=== PATIENT | female | born 1970 | race Hispanic/Latino ===

== ENCOUNTER 2016-10-25 07:36 | Emergency (ER) | payer MEDICAID, OTHER ==
[2016-10-25 07:41] VITALS: BP 136/85; PULSE 98; RESP 20; TEMP 97.9; O2SAT 100; BMI 24.0
--- NOTE | 2016-10-25 07:54 | ED PDOC ---
HPI: Asthma Time Seen by Provider: 10/25/16 07:42 Chief Complaint (Nursing): Flu-like Symptoms History Per: Patient History/Exam Limitations: no limitations Additional Complaint(s): 46-year-old female, PMHx includes Seasonal Asthma, presents to the emergency department with complaints of wheezing that started this morning. Patient states her symptoms are consistent w/ prior asthma exacerbation symptoms. She notes mild associated chest tightness. Denies vomiting, fevers, chills, shortness of breath, chest pain, back pain, nausea/vomiting, diarrhea, or any other associated symptoms. No other complaints at this time. Past Medical History Vital Signs: Last Vital Signs Temp 97.9 F 10/25/16 07:38 Pulse 98 H 10/25/16 07:38 Resp 20 10/25/16 07:38 BP 136/85 10/25/16 07:38 Pulse Ox 100 10/25/16 07:38 - Medical History PMH: Asthma, Migraine Denies: HIV - Family History Family History: States: Unknown Family Hx - Home Medications Home Medications: Ambulatory Orders Medication Instructions Recorded Acetaminophen [Tylenol] 650 mg PO Q6 PRN #0 tab 10/17/14 Multivit/Folic Acid/I 1 tab PO DAILY #0 tab 10/17/14 [ Plus] Oxycodone HCl/Acetaminophen 1 tab PO Q6 PRN #8 tab 11/05/14 [Percocet 325 mg-5 mg] Albuterol HFA [Ventolin HFA 90 2 puff IH [id number] PRN #1 puff 12/23/14 mcg/actuation (8 g)] Chlorpheniramine Polistirex/ 5 ml PO Q12 #80 ml 12/23/14 [Tussionex Pennkinetic 8 mg/5 ml-10 mg/5 ml 5 ] Fluticasone Propionate [Flonase] 1 actuation NS BID #1 bottle 12/23/14 Guaifenesin/Pseudoephedrne HCl 1 tab PO DAILY PRN #30 ter 12/23/14 [Mucinex D 600 mg-60 mg] Prednisone 20 mg PO DAILY #5 tab 12/23/14 Ibuprofen 600 mg PO Q6 PRN #15 tablet 01/22/16 Amoxicillin 875 mg PO BID #20 tab 03/01/16 Albuterol HFA [Ventolin HFA 90 2 puff IH Q4 #1 puff 10/25/16 mcg/actuation (8 g)] predniSONE [predniSONE Tab] 40 mg PO DAILY #10 tab 10/25/16 - Allergies Allergies/Adverse Reactions: Allergies Allergy/AdvReac Type Severity Reaction Status Date / Time No Known Allergies Allergy Verified 08/03/16 07:49 Review of Systems ROS Statement: Except As Marked, All Systems Reviewed And Found Negative Constitutional: Negative for: Fever, Chills ENT: Positive for: Nose Congestion Cardiovascular: Negative for: Chest Pain, Palpitations, Edema, Light Headedness Respiratory: Positive for: Cough, Other (MILD CHEST TIGHTNESS). Negative for: Shortness of Breath, Sputum Gastrointestinal: Negative for: Nausea, Vomiting Musculoskeletal: Negative for: Neck Pain, Back Pain Skin: Negative for: Rash Neurological: Negative for: Weakness, Numbness, Headache Physical Exam - Reviewed Nursing Documentation Reviewed: Yes Vital Signs Reviewed: Yes - Physical Exam Appears: Positive for: Non-toxic, No Acute Distress Head Exam: Positive for: ATRAUMATIC, NORMOCEPHALIC Skin: Positive for: Normal Color, Warm, Dry. Negative for: Rash Eye Exam: Positive for: Normal appearance Neck: Positive for: Painless ROM, Supple Cardiovascular/Chest: Positive for: Regular Rate, Rhythm Respiratory: Positive for: Wheezing (DIFFUSE EXPIRATORY WHEEZING). Negative for : Accessory Muscle Use, Rales, Rhonchi, Respiratory Distress Extremity: Positive for: Normal ROM Neurologic/Psych: Positive for: Alert, Oriented (X3), Other (NO FOCAL NEURO DEFICITS) - ECG O2 Sat by Pulse Oximetry: 100 Medical Decision Making Medical Decision Making: Impression: 46y/o F w/ expiratory wheezing that started this morning. patient attributes symptoms to seasonal asthma. Diff Dx (includes but not limited to) Seasonal Asthma exacerbation R/O Pneumonia vs URI Prior Visits Notes and records from previous records were reviewed. Patient seen in ER on for lower extremity pain/injury. Plan: * Chest X-Ray * Duoneb * Reassess and Disposition 0850 On re-evaluation. Patients wheezing has improved significantly, Pt is c/o mild chest tightness. Will order another Duoneb and reassess. 09:40 Patient felt much better. No chest tightness. No wheezing. Lungs clear. No w/r/ r. She does not want to take Prednisone. I gave her a prescription for Albuterol and Prednisone and told her to make sure to take medications as directed. She will f/u with her PMD. CXR negative for PNA and patient does not clinically need antibiotics. Scribe Attestation: Documented by Lina Spencer acting as a scribe for Jose Lainez DO. Provider Attestation: All medical record entries made by the Scribe were at my direction and personally dictated by me. I have reviewed the chart and agree that the record accurately reflects my personal performance of the history, physical exam, medical decision making, and the department course for this patient. I have also personally directed, reviewed, and agree with the discharge instructions and disposition. Disposition - Clinical Impression Clinical Impression: URI (upper respiratory infection), Asthma - Disposition Referrals: Dharmesh Jurado MD [Primary Care Provider] - Disposition Time: 10:00 Condition: IMPROVED Additional Instructions: Ms Vargas, thank you for letting us take care of you today. Your provider was Dr. Lainez. You were treated for Asthma, Upper Resp Infection. The emergency medical care you received today was directed at your acute symptoms. If you were prescribed any medication, please fill it and take as directed. It may take several days for your symptoms to resolve. Return to the Emergency Department if your symptoms worsen, do not improve, or if you have any other problems. Please contact your doctor or call one of the physicians/clinics you have been referred to that are listed on the Patient Visit Information form that is included in your discharge packet. Bring any paperwork you were given at discharge with you along with any medications you are taking to your follow up visit. Our treatment cannot replace ongoing medical care by a primary care provider (PCP) outside of the emergency department. Thank you for allowing the [facility] team to be part of your care today. If you had an X-Ray or CT scan: A Radiologist will review the ED reading if any change in treatment is needed we will contact you. If you had a blood, urine, or wound culture: It will take several days for the results, if any change in treatment is needed we will contact you. If you had an STI test: It will take 48 hours for the results. Please call after 1 week if you have not heard back. Prescriptions: Albuterol HFA [Ventolin HFA 90 mcg/actuation (8 g)] 2 puff IH Q4 #1 puff predniSONE [predniSONE Tab] 40 mg PO DAILY #10 tab Forms: [facility] ED School/Work Excuse
[2016-10-25] MEDS ORDERED: Albuterol-Ipratrop 3 mg / 0.5 (3 ml) UD IH STA ×2 (08:07→08:51)
[2016-10-25] MEDS ORDERED: Albuterol-Ipratrop 3 mg / 0.5 (3 ml) UD ONE (08:49)
--- NOTE | 2016-10-25 09:42 | RAD ---
HISTORY: cough r/o pna COMPARISON: 12/23/2014. TECHNIQUE: Chest PA and lateral FINDINGS: LUNGS: No active pulmonary disease. PLEURA: No significant pleural effusion identified. No pneumothorax apparent. CARDIOVASCULAR: Normal. OSSEOUS STRUCTURES: No significant abnormalities. VISUALIZED UPPER ABDOMEN: Normal. OTHER FINDINGS: None. IMPRESSION: No active disease.
== END 2016-10-25 10:10 | disposition home or self-care (01) ==
LOC: H.ER 07:36
DX: J06.9 Acute upper respiratory infection, unspecified (principal); J45.901 Unspecified asthma with (acute) exacerbation

== ENCOUNTER 2016-10-28 07:39 | Emergency (ER) | payer SELFPAY ==
[2016-10-28 07:39] VITALS: BMI 24.0
[2016-10-28 07:55] VITALS: O2SAT 98
--- NOTE | 2016-10-28 08:22 | ED PDOC ---
HPI: SOB/CHF/COPD Time Seen by Provider: 10/28/16 07:49 Chief Complaint (Nursing): Cough, Cold, Congestion Chief Complaint (Provider): Cough, Cold, Congestion History Per: Patient History/Exam Limitations: no limitations Onset/Duration Of Symptoms: Days Current Symptoms Are (Timing): Still Present Initiating Event: Upper Respiratory Illness Quality: Tightness Exacerbating Factor(s): Coughing Current Respiratory Medications: Albuterol, Prednisone Severity: Mild Associated Symptoms: Fever Additional Complaint(s): Patient is a 46 year old female who presents to ED for SOB, feeling feverish, and cough for 1 week. States she was evaluated in ED over the weekend with a negative CXR and discharged on Prednisone and Albuterol. Patient states she was instructed to return to ED if symptoms worsen. Patient denies sore throat, headache or sputum. Past Medical History Reviewed: Historical Data, Nursing Documentation, Vital Signs Vital Signs: Last Vital Signs Temp 97.4 F L 10/28/16 07:45 Pulse 86 10/28/16 07:45 Resp 18 10/28/16 07:45 BP 135/88 10/28/16 07:45 Pulse Ox 98 10/28/16 08:25 - Medical History PMH: Asthma, Bronchitis, Migraine Denies: HIV - Surgical History Surgical History: No Surg Hx - Family History Family History: States: Unknown Family Hx - Living Arrangements Living Arrangements: With Family - Home Medications Home Medications: Ambulatory Orders Medication Instructions Recorded Acetaminophen [Tylenol] 650 mg PO Q6 PRN #0 tab 10/17/14 Multivit/Folic Acid/I 1 tab PO DAILY #0 tab 10/17/14 [ Plus] Oxycodone HCl/Acetaminophen 1 tab PO Q6 PRN #8 tab 11/05/14 [Percocet 325 mg-5 mg] Albuterol HFA [Ventolin HFA 90 2 puff IH [id number] PRN #1 puff 12/23/14 mcg/actuation (8 g)] Chlorpheniramine Polistirex/ 5 ml PO Q12 #80 ml 12/23/14 [Tussionex Pennkinetic 8 mg/5 ml-10 mg/5 ml 5 ] Fluticasone Propionate [Flonase] 1 actuation NS BID #1 bottle 12/23/14 Guaifenesin/Pseudoephedrne HCl 1 tab PO DAILY PRN #30 ter 12/23/14 [Mucinex D 600 mg-60 mg] Prednisone 20 mg PO DAILY #5 tab 12/23/14 Ibuprofen 600 mg PO Q6 PRN #15 tablet 01/22/16 Amoxicillin 875 mg PO BID #20 tab 03/01/16 Albuterol HFA [Ventolin HFA 90 2 puff IH Q4 #1 puff 10/25/16 mcg/actuation (8 g)] predniSONE [predniSONE Tab] 40 mg PO DAILY #10 tab 10/25/16 Fluticasone/Salmeterol 250/50 1 dsk IH BID #1 inh 10/28/16 [Advair Diskus] Promethazine/Codeine 5 ml PO Q6 PRN #100 ml 10/28/16 [Phenergan/Codeine Oral Syrup] - Allergies Allergies/Adverse Reactions: Allergies Allergy/AdvReac Type Severity Reaction Status Date / Time No Known Allergies Allergy Verified 08/03/16 07:49 Review of Systems ROS Statement: Except As Marked, All Systems Reviewed And Found Negative Constitutional: Positive for: Chills. Negative for: Fever ENT: Negative for: Ear Pain, Nose Congestion, Throat Pain Cardiovascular: Negative for: Chest Pain, Palpitations Respiratory: Positive for: Cough, Shortness of Breath, Wheezing. Negative for: Sputum Gastrointestinal: Positive for: Nausea. Negative for: Vomiting, Abdominal Pain , Diarrhea Skin: Negative for: Rash Neurological: Negative for: Weakness, Numbness Physical Exam - Reviewed Nursing Documentation Reviewed: Yes Vital Signs Reviewed: Yes - Physical Exam Appears: Positive for: Non-toxic, No Acute Distress Skin: Positive for: Normal Color, Warm. Negative for: Rash Eye Exam: Positive for: Normal appearance ENT: Negative for: Nasal Congestion, Pharyngeal Erythema, Tonsillar Exudate Neck: Positive for: Normal, Painless ROM Cardiovascular/Chest: Positive for: Regular Rate, Rhythm. Negative for: Murmur Respiratory: Positive for: Normal Breath Sounds. Negative for: Respiratory Distress Gastrointestinal/Abdominal: Positive for: Normal Exam. Negative for: Tenderness Extremity: Positive for: Normal ROM. Negative for: Pedal Edema Neurologic/Psych: Positive for: Alert, Oriented - Laboratory Results Result Diagrams: 10/28/16 08:30 10/28/16 08:30 - ECG O2 Sat by Pulse Oximetry: 98 - Progress Re-evaluation Time: 10:33 Condition: Re-examined, Improved Medical Decision Making Medical Decision Making: Time: 08 Initial impression: Asthma exacerbation vs URI, possible steroid side effect. Initial plan: cbc trop -- Duoneb x2 -- Flu swab Scribe Attestation: Documented by Kely Leal acting as a scribe for Marvin Jennings MD MD Scribe Attestation: All medical record entries made by the Scribe were at my direction and personally dictated by me. I have reviewed the chart and agree that the record accurately reflects my personal performance of the history, physical exam, medical decision making, and the department course for this patient. I have also personally directed, reviewed, and agree with the discharge instructions and disposition. Disposition - Clinical Impression Clinical Impression: Asthma exacerbation - Patient ED Disposition Is Patient to be Admitted: No Doctor Will See Patient In The: Office Counseled Patient/Family Regarding: Studies Performed, Diagnosis, Need For Followup - Disposition Referrals: [facility] [Outside] Disposition: Routine/Home Disposition Time: 10:33 Condition: GOOD Additional Instructions: Return for worsening. Follow up with your PCP in 2-3 days. Prescriptions: Fluticasone/Salmeterol 250/50 [Advair Diskus] 1 dsk IH BID #1 inh Instructions: Asthma (ED)
[2016-10-28] MEDS ORDERED: Albuterol 0.083% Inhal Sol (2.5 mg/3 mL) UD INH STA (08:33)
[2016-10-28] MEDS ORDERED: Promethazine/Cod 6.25mg-10mg/5ml Syr UD PO STA (08:34)
[2016-10-28] MEDS ORDERED: Promethazine/Cod 6.25mg-10mg/5ml Syr UD ONE (08:58)
[2016-10-28 09:09] LABS: BASO % 0.5 % (0.0-2.0); EOS % 0.1 % (0.0-4.0); LYMPH % 11.9 % (20.0-40.0); MEAN CELL VOLUME 92.1 fl (81.0-99.0); MEAN CORPUSCULAR HEMOGLOBIN 30.3 pg (27.0-31.0); MEAN CORPUSCULAR HGB CONC 32.9 g/dL (33.0-37.0); MEAN PLATELET VOLUME 10.4 fl (7.2-11.7); MONO # 0.3 K/uL (0.0-0.8); MONO % 3.8 % (0.0-10.0); NEUT # 7.1 K/uL (1.8-7.0); NEUT % 83.7 % (50.0-75.0); NRBC % 0.1 % (0.0-0.0); RED CELL DISTRIBUTION WIDTH 12.2 % (11.5-14.5); WHITE BLOOD COUNT 8.5 K/uL (4.8-10.8)
[2016-10-28 09:26] LABS: BLOOD UREA NITROGEN 9 mg/dl (7-17); CALCIUM 10.2 mg/dL (8.4-10.2); CARBON DIOXIDE 23 mmol/L (22-30); CHLORIDE 105 mmol/L (98-107); GFR AFRICAN-AMERICAN > 60; GLUCOSE,RANDOM 106 mg/dL (65-105); POTASSIUM 4.1 MMOL/L (3.6-5.0); SODIUM 139 mmol/l (132-148)
[2016-10-28 10:50] VITALS: BP 128/76; PULSE 78; RESP 19; TEMP 97.6
--- NOTE | 2016-10-29 10:03 | CARD ---
APPROVED REPORT EKG Measurement Heart [id number] <Conclusion> Normal sinus rhythm Normal ECG
== END 2016-10-28 10:50 | disposition home or self-care (01) ==
LOC: H.ER 07:39
DX: J45.901 Unspecified asthma with (acute) exacerbation (principal); F17.210 Nicotine dependence, cigarettes, uncomplicated

== ENCOUNTER 2016-11-27 20:59 | Emergency (ER) | payer SELFPAY ==
[2016-11-27 20:59] VITALS: BMI 24.0
[2016-11-27 21:08] VITALS: BP 141/81; PULSE 84; RESP 16; TEMP 97.9; O2SAT 100
--- NOTE | 2016-11-27 21:40 | ED PDOC ---
HPI: Skin/Bite Injury Time Seen by Provider: 11/27/16 21:08 Chief Complaint (Nursing): Abnormal Skin Integrity Chief Complaint (Provider): abscess History Per: Patient Additional Complaint(s): Pt ambulated to ED for evaluation of 'boil' in right groin x 2 days Past Medical History Vital Signs: Last Vital Signs Temp 97.9 F 11/27/16 21:04 Pulse 84 11/27/16 21:04 Resp 16 11/27/16 21:04 BP 141/81 11/27/16 21:04 Pulse Ox 100 11/27/16 21:04 - Medical History PMH: Asthma, Bronchitis, Migraine Denies: HIV - Family History Family History: States: Unknown Family Hx - Home Medications Home Medications: Ambulatory Orders Medication Instructions Recorded Acetaminophen [Tylenol] 650 mg PO Q6 PRN #0 tab 10/17/14 Multivit/Folic Acid/I 1 tab PO DAILY #0 tab 10/17/14 [ Plus] Oxycodone HCl/Acetaminophen 1 tab PO Q6 PRN #8 tab 11/05/14 [Percocet 325 mg-5 mg] Albuterol HFA [Ventolin HFA 90 2 puff IH [id number] PRN #1 puff 12/23/14 mcg/actuation (8 g)] Chlorpheniramine Polistirex/ 5 ml PO Q12 #80 ml 12/23/14 [Tussionex Pennkinetic 8 mg/5 ml-10 mg/5 ml 5 ] Fluticasone Propionate [Flonase] 1 actuation NS BID #1 bottle 12/23/14 Guaifenesin/Pseudoephedrne HCl 1 tab PO DAILY PRN #30 ter 12/23/14 [Mucinex D 600 mg-60 mg] Prednisone 20 mg PO DAILY #5 tab 12/23/14 Ibuprofen 600 mg PO Q6 PRN #15 tablet 01/22/16 Amoxicillin 875 mg PO BID #20 tab 03/01/16 Albuterol HFA [Ventolin HFA 90 2 puff IH Q4 #1 puff 10/25/16 mcg/actuation (8 g)] predniSONE [predniSONE Tab] 40 mg PO DAILY #10 tab 10/25/16 Azithromycin [Z-Everardo] 250 mg PO DAILY #6 tab 10/28/16 Fluticasone/Salmeterol 250/50 1 dsk IH BID #1 inh 10/28/16 [Advair Diskus] Promethazine/Codeine 5 ml PO Q6 PRN #100 ml 10/28/16 [Phenergan/Codeine Oral Syrup] - Allergies Allergies/Adverse Reactions: Allergies Allergy/AdvReac Type Severity Reaction Status Date / Time No Known Allergies Allergy Verified 11/27/16 21:08 - ECG O2 Sat by Pulse Oximetry: 100
== END 2016-11-28 00:04 | disposition home or self-care (01) ==
LOC: H.ER 20:59
DX: Z48.00 Encounter for change or removal of nonsurgical wound dressing (principal)

== ENCOUNTER 2017-01-24 15:49 | Emergency (ER) | payer MEDICAID ==
[2017-01-24 15:50] VITALS: BMI 24.0
[2017-01-24 15:55] VITALS: BP 129/96; PULSE 98; RESP 18; TEMP 98.3; O2SAT 98
--- NOTE | 2017-01-24 16:42 | ED PDOC ---
HPI: Female Pain Time Seen by Provider: 01/24/17 15:56 Chief Complaint (Nursing): Female Genitourinary Chief Complaint (Provider): Dysuria and Urinary frequency History Per: Patient History/Exam Limitations: no limitations Onset/Duration Of Symptoms: Hrs Current Symptoms Are (Timing): Still Present Associated Symptoms: denies: Fever, Chest Pain Additional Complaint(s): Yesenia Vargas, a 46 year old female, presents to the ED with dysuria and urine frequency w/o back pain. The patient also states that for the past 3 days she has had a cough which she self treated with zithromax, which she had left over from a previous infection. Denies shortness of breath, chest pain, hemoptysis, fever, sick contacts, recent travel, hematuria and flank pain. Past Medical History Reviewed: Historical Data, Nursing Documentation, Vital Signs Vital Signs: Last Vital Signs Temp 98.3 F 01/24/17 15:53 Pulse 98 H 01/24/17 15:53 Resp 18 01/24/17 15:53 BP 129/96 H 01/24/17 15:53 Pulse Ox 98 01/24/17 15:53 - Medical History PMH: Asthma, Bronchitis, Migraine Denies: HIV - Family History Family History: States: Unknown Family Hx - Home Medications Home Medications: Ambulatory Orders Medication Instructions Recorded Acetaminophen [Tylenol] 650 mg PO Q6 PRN #0 tab 10/17/14 Multivit/Folic Acid/I 1 tab PO DAILY #0 tab 10/17/14 [ Plus] Oxycodone HCl/Acetaminophen 1 tab PO Q6 PRN #8 tab 11/05/14 [Percocet 325 mg-5 mg] Albuterol HFA [Ventolin HFA 90 2 puff IH [id number] PRN #1 puff 12/23/14 mcg/actuation (8 g)] Chlorpheniramine Polistirex/ 5 ml PO Q12 #80 ml 12/23/14 [Tussionex Pennkinetic 8 mg/5 ml-10 mg/5 ml 5 ] Fluticasone Propionate [Flonase] 1 actuation NS BID #1 bottle 12/23/14 Guaifenesin/Pseudoephedrne HCl 1 tab PO DAILY PRN #30 ter 12/23/14 [Mucinex D 600 mg-60 mg] Prednisone 20 mg PO DAILY #5 tab 12/23/14 Ibuprofen 600 mg PO Q6 PRN #15 tablet 01/22/16 Amoxicillin 875 mg PO BID #20 tab 03/01/16 Albuterol HFA [Ventolin HFA 90 2 puff IH Q4 #1 puff 10/25/16 mcg/actuation (8 g)] predniSONE [predniSONE Tab] 40 mg PO DAILY #10 tab 10/25/16 Azithromycin [Z-Everardo] 250 mg PO DAILY #6 tab 10/28/16 Fluticasone/Salmeterol 250/50 1 dsk IH BID #1 inh 10/28/16 [Advair Diskus] Promethazine/Codeine 5 ml PO Q6 PRN #100 ml 10/28/16 [Phenergan/Codeine Oral Syrup] Clindamycin [Cleocin] 300 mg PO BID #14 cap 11/27/16 Ibuprofen [Motrin] 600 mg PO Q6 #20 tab 11/27/16 Mupirocin 2% Cream [Bactroban 30 applic TOP BID #1 tube 11/27/16 Cream] Nitrofurantoin Macrocrystals 100 mg PO BID #14 cap 01/24/17 [Macrobid] Phenazopyridine [Pyridium] 200 mg PO BID #6 tab 01/24/17 Promethazine DM [Phenergan DM 5 - 10 ml PO Q8 PRN #120 ml 01/24/17 Syrup] - Allergies Allergies/Adverse Reactions: Allergies Allergy/AdvReac Type Severity Reaction Status Date / Time No Known Allergies Allergy Verified 01/24/17 15:52 Review of Systems Constitutional: Negative for: Fever Cardiovascular: Negative for: Chest Pain Respiratory: Positive for: Cough. Negative for: Shortness of Breath, Hemoptysis Genitourinary Female: Positive for: Dysuria, Frequency. Negative for: Hematuria Musculoskeletal: Positive for: Other (denies flank pain). Negative for: Back Pain Physical Exam - Reviewed Nursing Documentation Reviewed: Yes Vital Signs Reviewed: Yes - Physical Exam Appears: Positive for: Non-toxic, No Acute Distress Head Exam: Positive for: ATRAUMATIC, NORMOCEPHALIC Skin: Positive for: Normal Color, Warm Eye Exam: Positive for: Normal appearance, EOMI, PERRL ENT: Positive for: Normal ENT Inspection Cardiovascular/Chest: Positive for: Regular Rate, Rhythm. Negative for: Chest Non Tender, Tachycardia Respiratory: Positive for: Normal Breath Sounds. Negative for: Wheezing, Respiratory Distress Gastrointestinal/Abdominal: Positive for: Normal Exam, Bowel Sounds, Soft. Negative for: Tenderness Back: Positive for: Normal Inspection. Negative for: L CVA Tenderness, R CVA Tenderness Extremity: Positive for: Normal ROM. Negative for: Deformity, Swelling Neurologic/Psych: Positive for: Alert, Oriented - Laboratory Results Urine POC: Negative Urine dip results: Positive for: Leukocyte Esterase (large), Blood (large), Nitrate (positive). Negative for: Ketones, Glucose, Bilirubin, Protein - ECG O2 Sat by Pulse Oximetry: 98 (RA) Pulse Ox Interpretation: Normal Medical Decision Making Medical Decision Makin:56 Initial Impression: 46 year old female presenting with dysuria and urine frequency Initial Plan: * Urine preg * Urine dipstick * Urine culture * reevaluation Discussed plan with patient who expresses understanding. All questions answered and there is agreement with the plan to discharge home. Patient is stable and ready for discharge. Scribe Attestation: Documented by Ana Aguilar, acting as a scribe for Isaac Toure PA-C., MD Scribe Attestation: All medical record entries made by the Scribe were at my direction and personally dictated by me. I have reviewed the chart and agree that the record accurately reflects my personal performance of the history, physical exam, medical decision making, and the department course for this patient. I have also personally directed, reviewed, and agree with the discharge instructions and disposition. Disposition - Clinical Impression Clinical Impression: Urinary tract infection, Cough - Patient ED Disposition Is Patient to be Admitted: No Counseled Patient/Family Regarding: Studies Performed, Diagnosis - Disposition Referrals: [facility] [Outside] Disposition: Routine/Home Disposition Time: 16:20 Condition: STABLE Prescriptions: Nitrofurantoin Macrocrystals [Macrobid] 100 mg PO BID #14 cap Phenazopyridine [Pyridium] 200 mg PO BID #6 tab Promethazine DM [Phenergan DM Syrup] 5 - 10 ml PO Q8 PRN #120 ml PRN Reason: Cough Instructions: Urinary Tract Infection in Women (ED) Print Language: [id number]
== END 2017-01-24 16:20 | disposition home or self-care (01) ==
LOC: H.ER 15:49
DX: N39.0 Urinary tract infection, site not specified (principal); R05 Cough

== ENCOUNTER 2017-02-08 00:49 | Emergency (ER) | payer MEDICAID ==
[2017-02-08 00:51] VITALS: BMI 24.0
[2017-02-08 01:15] VITALS: BP 126/77; PULSE 90; RESP 16; TEMP 98; O2SAT 99
[2017-02-08 02:02] LABS: RBC URINE 1 /hpf (0-3); URINE BACTERIA MOD (<OCC); URINE BILIRUBIN NEGATIVE (NEGATIVE); URINE BLOOD NEGATIVE (NEGATIVE); URINE COLOR YELLOW (YELLOW); URINE GLUCOSE (UA) NEG (Normal); URINE KETONE NEGATIVE (NEGATIVE); URINE LEUKOCYTE ESTERASE NEG Leu/uL (Negative); URINE PROTEIN NEGATIVE (NEGATIVE); URINE UROBILINOGEN 0.2-1.0 mg/dL (0.2-1.0); WBC URINE 2 /hpf (0-5)
--- NOTE | 2017-02-08 02:06 | ED PDOC ---
HPI: Female Pain Time Seen by Provider: 02/08/17 01:12 Chief Complaint (Nursing): Female Genitourinary Chief Complaint (Provider): Female Genitourinary History Per: Patient History/Exam Limitations: no limitations Onset/Duration Of Symptoms: Days (2x weeks) Current Symptoms Are (Timing): Still Present Severity: Mild Associated Symptoms: Chills, Urinary Symptoms (dysuria). denies: Fever, Nausea , Vomiting, Back Pain Additional Complaint(s): 46 year old female patient with no pertinent medical history presents to the ED with complaints of dysuria accompanied by the chills and suprapubic pain that started 2x weeks ago. She reports that she rahat to the ED for the same symptoms and got diagnosed with a UTI, but did not take the antibiotics as prescribed ( she took them less often than instructed). She denies having an other symptoms including back pain, fever, nausea, and vomiting. PMD: patient does not recall. Past Medical History Reviewed: Historical Data, Nursing Documentation, Vital Signs Vital Signs: Last Vital Signs Temp 98 F 02/08/17 01:12 Pulse 90 02/08/17 01:12 Resp 16 02/08/17 01:12 BP 126/77 02/08/17 01:12 Pulse Ox 99 02/08/17 01:12 - Medical History PMH: Asthma, Bronchitis, Migraine Denies: HIV - Family History Family History: States: Unknown Family Hx - Social History Alcohol: Other (yes) Drugs: Denies - Home Medications Home Medications: Ambulatory Orders Medication Instructions Recorded Acetaminophen [Tylenol] 650 mg PO Q6 PRN #0 tab 10/17/14 Multivit/Folic Acid/I 1 tab PO DAILY #0 tab 10/17/14 [ Plus] Oxycodone HCl/Acetaminophen 1 tab PO Q6 PRN #8 tab 11/05/14 [Percocet 325 mg-5 mg] Albuterol HFA [Ventolin HFA 90 2 puff IH [id number] PRN #1 puff 12/23/14 mcg/actuation (8 g)] Chlorpheniramine Polistirex/ 5 ml PO Q12 #80 ml 12/23/14 [Tussionex Pennkinetic 8 mg/5 ml-10 mg/5 ml 5 ] Fluticasone Propionate [Flonase] 1 actuation NS BID #1 bottle 12/23/14 Guaifenesin/Pseudoephedrne HCl 1 tab PO DAILY PRN #30 ter 12/23/14 [Mucinex D 600 mg-60 mg] Prednisone 20 mg PO DAILY #5 tab 12/23/14 Ibuprofen 600 mg PO Q6 PRN #15 tablet 01/22/16 Amoxicillin 875 mg PO BID #20 tab 03/01/16 Albuterol HFA [Ventolin HFA 90 2 puff IH Q4 #1 puff 10/25/16 mcg/actuation (8 g)] predniSONE [predniSONE Tab] 40 mg PO DAILY #10 tab 10/25/16 Azithromycin [Z-Everardo] 250 mg PO DAILY #6 tab 10/28/16 Fluticasone/Salmeterol 250/50 1 dsk IH BID #1 inh 10/28/16 [Advair Diskus] Promethazine/Codeine 5 ml PO Q6 PRN #100 ml 10/28/16 [Phenergan/Codeine Oral Syrup] Clindamycin [Cleocin] 300 mg PO BID #14 cap 11/27/16 Ibuprofen [Motrin] 600 mg PO Q6 #20 tab 11/27/16 Mupirocin 2% Cream [Bactroban 30 applic TOP BID #1 tube 11/27/16 Cream] Nitrofurantoin Macrocrystals 100 mg PO BID #14 cap 01/24/17 [Macrobid] Phenazopyridine [Pyridium] 200 mg PO BID #6 tab 01/24/17 Promethazine DM [Phenergan DM 5 - 10 ml PO Q8 PRN #120 ml 01/24/17 Syrup] Ciprofloxacin [Cipro] 500 mg PO BID 7 Days 02/08/17 - Allergies Allergies/Adverse Reactions: Allergies Allergy/AdvReac Type Severity Reaction Status Date / Time No Known Allergies Allergy Verified 01/24/17 15:52 Review of Systems Constitutional: Positive for: Chills. Negative for: Fever Gastrointestinal: Positive for: Abdominal Pain (suprapubic pain). Negative for : Nausea, Vomiting Genitourinary Female: Positive for: Dysuria Musculoskeletal: Negative for: Back Pain Physical Exam - Reviewed Nursing Documentation Reviewed: Yes Vital Signs Reviewed: Yes - Physical Exam Appears: Positive for: Well, Non-toxic, No Acute Distress Head Exam: Positive for: ATRAUMATIC, NORMOCEPHALIC Skin: Positive for: Normal Color, Warm, Dry Cardiovascular/Chest: Positive for: Regular Rate, Rhythm Respiratory: Positive for: Normal Breath Sounds. Negative for: Respiratory Distress Gastrointestinal/Abdominal: Positive for: Normal Exam, Soft. Negative for: Tenderness Back: Positive for: Normal Inspection. Negative for: L CVA Tenderness, R CVA Tenderness Neurologic/Psych: Positive for: Alert, Oriented (3x) - ECG O2 Sat by Pulse Oximetry: 99 (RA) Pulse Ox Interpretation: Normal Medical Decision Making Medical Decision Makin:12 Initial impression: 46 year old female with a UTI. Initial plan: * urine * udip * urine culture * urinalysis Will prescribe cipro and d/c home. Return precautions given. Scribe Attestation: Documented by Tiffanie Glover, acting as a scribe for Nam Wong MD. Provider Scribe Attestation: All medical record entries made by the Scribe were at my direction and personally dictated by me. I have reviewed the chart and agree that the record accurately reflects my personal performance of the history, physical exam, medical decision making, and the department course for this patient. I have also personally directed, reviewed, and agree with the discharge instructions and disposition. Disposition - Clinical Impression Clinical Impression: UTI (urinary tract infection) - Disposition Referrals: [facility] [Outside] Disposition: Routine/Home Disposition Time: 02:28 Condition: STABLE Prescriptions: Ciprofloxacin [Cipro] 500 mg PO BID 7 Days Instructions: Urinary Tract Infection in Women (ED)
== END 2017-02-08 02:47 | disposition home or self-care (01) ==
LOC: H.ER 00:49
DX: N39.0 Urinary tract infection, site not specified (principal); J45.909 Unspecified asthma, uncomplicated

== ENCOUNTER 2017-08-28 20:22 | Emergency (ER) | payer SELFPAY ==
[2017-08-28 20:22] VITALS: BMI 24.0
[2017-08-28 20:27] VITALS: BP 132/78; PULSE 86; RESP 16; TEMP 98; O2SAT 99
[2017-08-28] MEDS ORDERED: Sodium Chloride 0.9% 1,000 ML IV STA (20:46)
--- NOTE | 2017-08-28 20:52 | ED PDOC ---
Lower Extremity Pain/Injury Time Seen by Provider: 08/28/17 20:32 Chief Complaint (Nursing): Lower Extremity Problem/Injury Chief Complaint (Provider): Left Calf Pain History Per: Patient History/Exam Limitations: no limitations Onset/Duration Of Symptoms: Intermittent Episodes Current Symptoms Are (Timing): Still Present Pain Scale Rating Of: 0 Additional Complaint(s): Yesenia Vargas, a 47 year old male, presents to the ED complaining of left calf pain. The patient states that she had similar pains about 6 months ago but it resolved then. She further reports that 3 days ago the pain returned and occurs in intermittent episodes lasting for abut a minute each time The patient states that the pain feels as though she is experiencing a "mali horse" but it is not as excruciating. She reports that earlier in the day she took 2 advil tablets for pain but they offered no relief. Denies back injury, trauma, recent injury, hormone therapy, control. PMD: FAMILY PROVIDER,NO - Risk Factors DVT Risk Factors: Pos: None Past Medical History Reviewed: Historical Data, Nursing Documentation, Vital Signs Vital Signs: Last Vital Signs Temp 98.0 F 08/28/17 20:27 Pulse 86 08/28/17 20:27 Resp 16 08/28/17 20:27 BP 132/78 08/28/17 20:27 Pulse Ox 99 08/28/17 20:27 - Medical History PMH: Asthma, Bronchitis, Migraine Denies: HIV - Family History Family History: States: Unknown Family Hx - Home Medications Home Medications: Ambulatory Orders Medication Instructions Recorded Acetaminophen [Tylenol] 650 mg PO Q6 PRN #0 tab 10/17/14 Multivit/Folic Acid/I 1 tab PO DAILY #0 tab 10/17/14 [ Plus] Oxycodone HCl/Acetaminophen 1 tab PO Q6 PRN #8 tab 11/05/14 [Percocet 325 mg-5 mg] Albuterol HFA [Ventolin HFA 90 2 puff IH [id number] PRN #1 puff 12/23/14 mcg/actuation (8 g)] Chlorpheniramine Polistirex/ 5 ml PO Q12 #80 ml 12/23/14 [Tussionex Pennkinetic 8 mg/5 ml-10 mg/5 ml 5 ] Fluticasone Propionate [Flonase] 1 actuation NS BID #1 bottle 12/23/14 Guaifenesin/Pseudoephedrne HCl 1 tab PO DAILY PRN #30 ter 12/23/14 [Mucinex D 600 mg-60 mg] Prednisone 20 mg PO DAILY #5 tab 12/23/14 Ibuprofen 600 mg PO Q6 PRN #15 tablet 01/22/16 Amoxicillin 875 mg PO BID #20 tab 03/01/16 Albuterol HFA [Ventolin HFA 90 2 puff IH Q4 #1 puff 10/25/16 mcg/actuation (8 g)] predniSONE [predniSONE Tab] 40 mg PO DAILY #10 tab 10/25/16 Azithromycin [Z-Everardo] 250 mg PO DAILY #6 tab 10/28/16 Fluticasone/Salmeterol 250/50 1 dsk IH BID #1 inh 10/28/16 [Advair Diskus] Promethazine/Codeine 5 ml PO Q6 PRN #100 ml 10/28/16 [Phenergan/Codeine Oral Syrup] Clindamycin [Cleocin] 300 mg PO BID #14 cap 11/27/16 Ibuprofen [Motrin] 600 mg PO Q6 #20 tab 11/27/16 Mupirocin 2% Cream [Bactroban 30 applic TOP BID #1 tube 11/27/16 Cream] Nitrofurantoin Macrocrystals 100 mg PO BID #14 cap 01/24/17 [Macrobid] Phenazopyridine [Pyridium] 200 mg PO BID #6 tab 01/24/17 Promethazine DM [Phenergan DM 5 - 10 ml PO Q8 PRN #120 ml 01/24/17 Syrup] Ciprofloxacin [Cipro] 500 mg PO BID 7 Days tab 02/08/17 Phenazopyridine HCl [Pyridium] 100 mg PO TID 3 Days tab 02/08/17 - Allergies Allergies/Adverse Reactions: Allergies Allergy/AdvReac Type Severity Reaction Status Date / Time No Known Allergies Allergy Verified 01/24/17 15:52 Review of Systems ROS Statement: Except As Marked, All Systems Reviewed And Found Negative Musculoskeletal: Positive for: Other (left calf pain) Physical Exam - Reviewed Nursing Documentation Reviewed: Yes Vital Signs Reviewed: Yes - Physical Exam Appears: Positive for: Non-toxic, No Acute Distress Head Exam: Positive for: ATRAUMATIC, NORMAL INSPECTION, NORMOCEPHALIC Skin: Positive for: Normal Color, Warm, Dry. Negative for: Rash Eye Exam: Positive for: Normal appearance Cardiovascular/Chest: Positive for: Regular Rate, Rhythm, Chest Non Tender. Negative for: Tachycardia Respiratory: Positive for: Normal Breath Sounds. Negative for: Wheezing, Respiratory Distress Extremity: Positive for: Normal ROM (Normal ROM of left foot), Calf Tenderness, Other (Good pulses appreciated; palpiteal an dpedal pulses noted; no skin changes noted.). Negative for: Deformity, Swelling Neurologic/Psych: Positive for: Alert, Oriented - Laboratory Results Result Diagrams: 08/28/17 21:29 08/28/17 21:29 - ECG O2 Sat by Pulse Oximetry: 99 (RA) Pulse Ox Interpretation: Normal Medical Decision Making Medical Decision Makin Initial Impression 47 y/o female presenting with left calf pain. r/o DVT Initial Plan: * CMP * CPK r/o Rhabdomyolysis * NS 1000 mL IV 1000 mls/hr * US Duplex EXTRM 2131 EXAM: US Duplex Left Lower Extremity Veins CLINICAL HISTORY: 47 years old, female; Pain; Leg, lower; Left; Additional info: Calf pain TECHNIQUE: Real-time ultrasound scan of the veins of the left lower extremity with color Doppler flow, spectral waveform analysis and compression. COMPARISON: US - DUPLEX LOWER EXTRM VEIN LEFT 2016-01-22 00:15 FINDINGS: Deep veins: Normal. No DVT in the visualized common femoral, femoral, proximal deep femoral or popliteal veins. The veins demonstrate normal color flow, are normally compressible, with normal phasic flow and/or augmentation response. The imaged proximal (anatomically) calf veins are unremarkable. Superficial veins: Normal. No thrombus in the visualized great saphenous vein. Soft tissues: No acute findings. No popliteal cyst. IMPRESSION: No evidence of DVT within the visualized deep venous structures of the left lower extremity at or above the knee. Pt stable for /dc (-) DVT, normal LAB RESULTS PT MOST LIKELY WITH MUSCLE CRAMPING POSSIBLY DUE TO DEHYDRATION, ADVISED TO F.U WITH PMD MOTRIN FOR PAIN Scribe Attestation Documented by Ana Aguilar acting as a scribe for Patrizia Rocha PA-C. Scribrudy Attestation All medical record entries made by the Scribe were at my direction and personally dictated by me. I have reviewed the chart and agree that the record accurately reflects my personal performance of the history, physical exam, medical decision making, and the department course for this patient. I have also personally directed, reviewed, and agree with the discharge instructions and disposition. Disposition - Clinical Impression Clinical Impression: Muscle strain - Patient ED Disposition Is Patient to be Admitted: No Counseled Patient/Family Regarding: Studies Performed, Diagnosis, Need For Followup - Disposition Disposition: Routine/Home Disposition Time: 21:59 Condition: STABLE Instructions: Muscle Spasm (ED) Forms: [facility] ([place])
[2017-08-28 21:32] LABS: BASO # 0.1 K/uL (0.0-0.2); BASO % 1.9 % (0.0-2.0); EOS # 0.2 K/uL (0.0-0.7); EOS % 3.7 % (0.0-4.0); HEMATOCRIT 43.8 % (34.0-47.0); LYMPH % 37.1 % (20.0-40.0); MEAN CORPUSCULAR HEMOGLOBIN 30.5 pg (27.0-31.0); MEAN CORPUSCULAR HGB CONC 32.8 g/dL (33.0-37.0); MEAN PLATELET VOLUME 10.1 fl (7.2-11.7); MONO # 0.4 K/uL (0.0-0.8); MONO % 8.2 % (0.0-10.0); NEUT # 2.7 K/uL (1.8-7.0); NEUT % 49.1 % (50.0-75.0); RED CELL DISTRIBUTION WIDTH 12.7 % (11.5-14.5); WHITE BLOOD COUNT 5.5 K/uL (4.8-10.8)
[2017-08-28 21:53] LABS: ALB/GLOB RATIO 1.3 (1.0-2.1); BLOOD UREA NITROGEN 7 mg/dl (7-17); CALCIUM 9.5 mg/dL (8.4-10.2); CARBON DIOXIDE 26 mmol/L (22-30); CHLORIDE 107 mmol/L (98-107); GFR AFRICAN-AMERICAN > 60; GLUCOSE,RANDOM 88 mg/dL (65-105); POTASSIUM 4.4 MMOL/L (3.6-5.0); SODIUM 139 mmol/l (132-148); TOTAL PROTEIN 7.2 G/DL (6.3-8.2)
[2017-08-28 21:54] LABS: ALKALINE PHOSPHATASE 61 U/L (38-126); ALT/SGPT 28 U/L (9-52); AST/SGOT 22 U/L (14-36); BILIRUBIN,TOTAL 0.7 mg/dl (0.2-1.3)
--- NOTE | 2017-08-29 08:06 | US ---
HISTORY: calf pain . PRIORS: None. FINDINGS: 2-D, color and duplex Doppler analysis of the lower extremity venous circulation using routine protocol from the femoral veins through the popliteal veins. Venous compressibility: Normal. Flow and augmentation patterns: Normal. Visualized veins upper third of calf: Normal. Saravia cyst: None. IMPRESSION: No sonographic or Doppler evidence for DVT in left lower extremity. Concordant results (preliminary interpretation) provided by [facility]. Procedure Completed: 09:00 Preliminary ([facility]) Report: Dictated and Authenticated: 21:32 Final Interpretation: 08:04
== END 2017-08-28 22:42 | disposition home or self-care (01) ==
LOC: H.ER 20:22
DX: E86.0 Dehydration (principal); M79.605 Pain in left leg
CPT/HCPCS: 80053; 82550; 85025; 93971; 96360; 99283; J7040

== ENCOUNTER 2018-01-16 22:28 | Emergency (ER) | payer BC ==
[2018-01-16 22:28] VITALS: BMI 24.0
[2018-01-16 23:14] VITALS: BP 142/95; PULSE 103; RESP 20; TEMP 98.4; O2SAT 99
[2018-01-17] MEDS ORDERED: Sodium Chloride 0.9% 1,000 ML IV STA (01:01)
--- NOTE | 2018-01-17 02:06 | ED PDOC ---
HPI: Headache Time Seen by Provider: 01/17/18 00:19 Chief Complaint (Nursing): Headache Chief Complaint (Provider): Headache History Per: Patient History/Exam Limitations: no limitations Onset/Duration Of Symptoms: Days (x1) Current Symptoms Are (Timing): Still Present Additional Complaint(s): 47 year old female with medical history of migraines, presents to the emergency department with a complaint of headaches similar to prior migraines associated with nausea and light sensitivity ongoing for 1 day. She also reports having a cold including cough and congestion for the last 3 days. Patient states migraines have been increasing in frequency in the last year with a "sense of serg vu". She states having used intranasal Imitrex in the past but discontinued after lost of coverage from insurance. She denies any fever, chills or vomiting. PMD: none provided Past Medical History Reviewed: Historical Data, Nursing Documentation, Vital Signs Vital Signs: Last Vital Signs Temp 98.4 F 01/16/18 23:11 Pulse 103 H 01/16/18 23:11 Resp 20 01/16/18 23:11 BP 142/95 H 01/16/18 23:11 Pulse Ox 99 01/16/18 23:11 - Medical History PMH: Asthma, Bronchitis, Migraine Denies: HIV - Family History Family History: States: Unknown Family Hx - Social History Current smoker - smoking cessation education provided: No Alcohol: None Drugs: Denies - Home Medications Home Medications: Ambulatory Orders Medication Instructions Recorded Acetaminophen [Tylenol] 650 mg PO Q6 PRN #0 tab 10/17/14 Multivit/Folic Acid/I 1 tab PO DAILY #0 tab 10/17/14 [ Plus] Oxycodone HCl/Acetaminophen 1 tab PO Q6 PRN #8 tab 11/05/14 [Percocet 325 mg-5 mg] Albuterol HFA [Ventolin HFA 90 2 puff IH [id number] PRN #1 puff 12/23/14 mcg/actuation (8 g)] Chlorpheniramine Polistirex/ 5 ml PO Q12 #80 ml 12/23/14 [Tussionex Pennkinetic 8 mg/5 ml-10 mg/5 ml 5 ] Fluticasone Propionate [Flonase] 1 actuation NS BID #1 bottle 12/23/14 Guaifenesin/Pseudoephedrne HCl 1 tab PO DAILY PRN #30 ter 12/23/14 [Mucinex D 600 mg-60 mg] Prednisone 20 mg PO DAILY #5 tab 12/23/14 Ibuprofen 600 mg PO Q6 PRN #15 tablet 01/22/16 Amoxicillin 875 mg PO BID #20 tab 03/01/16 Albuterol HFA [Ventolin HFA 90 2 puff IH Q4 #1 puff 10/25/16 mcg/actuation (8 g)] predniSONE [predniSONE Tab] 40 mg PO DAILY #10 tab 10/25/16 Azithromycin [Z-Everardo] 250 mg PO DAILY #6 tab 10/28/16 Fluticasone/Salmeterol 250/50 1 dsk IH BID #1 inh 10/28/16 [Advair Diskus] Promethazine/Codeine 5 ml PO Q6 PRN #100 ml 10/28/16 [Phenergan/Codeine Oral Syrup] Clindamycin [Cleocin] 300 mg PO BID #14 cap 11/27/16 Ibuprofen [Motrin] 600 mg PO Q6 #20 tab 11/27/16 Mupirocin 2% Cream [Bactroban 30 applic TOP BID #1 tube 11/27/16 Cream] Nitrofurantoin Macrocrystals 100 mg PO BID #14 cap 01/24/17 [Macrobid] Phenazopyridine [Pyridium] 200 mg PO BID #6 tab 01/24/17 Promethazine DM [Phenergan DM 5 - 10 ml PO Q8 PRN #120 ml 01/24/17 Syrup] Ciprofloxacin [Cipro] 500 mg PO BID 7 Days tab 02/08/17 Phenazopyridine HCl [Pyridium] 100 mg PO TID 3 Days tab 02/08/17 Sumatriptan [Imitrex] 5 mg NS ONCE PRN #1 spray 01/17/18 - Allergies Allergies/Adverse Reactions: Allergies Allergy/AdvReac Type Severity Reaction Status Date / Time No Known Allergies Allergy Verified 01/24/17 15:52 Review of Systems ROS Statement: Except As Marked, All Systems Reviewed And Found Negative Constitutional: Negative for: Fever, Chills Eyes: Positive for: Other (light sensitivity) ENT: Positive for: Nose Congestion Respiratory: Positive for: Cough Gastrointestinal: Positive for: Nausea. Negative for: Vomiting Neurological: Positive for: Headache Physical Exam - Reviewed Nursing Documentation Reviewed: Yes Vital Signs Reviewed: Yes - Physical Exam Appears: Positive for: Non-toxic, No Acute Distress Head Exam: Positive for: ATRAUMATIC, NORMAL INSPECTION, NORMOCEPHALIC Skin: Positive for: Normal Color Eye Exam: Positive for: Normal appearance ENT: Positive for: Normal ENT Inspection, TM Is/Are (clear bilaterally). Negative for: Sinus Pain/Drainage, Nasal Congestion, Pharyngeal Erythema, Tonsillar Swelling Neck: Positive for: Normal, Painless ROM, Supple Cardiovascular/Chest: Positive for: Regular Rate, Rhythm. Negative for: Murmur Respiratory: Positive for: Normal Breath Sounds. Negative for: Wheezing, Respiratory Distress Gastrointestinal/Abdominal: Positive for: Normal Exam, Soft. Negative for: Tenderness Extremity: Positive for: Normal ROM (upper/lower) Neurologic/Psych: Positive for: Alert, Oriented. Negative for: Motor/Sensory Deficits - ECG O2 Sat by Pulse Oximetry: 99 (RA) Pulse Ox Interpretation: Normal Medical Decision Making Medical Decision Making: Initial Impression: Migraine Initial Plan: * CT head without contrast * BMP * Urine * Urine dipstick * CBC * PTT * PT * Imitrex inj 6mg SC * NS 1,000ml IV per 1,000mls/hr * UA Time: 0110 --Patient is requesting to go home and refusing treatment as she states she is feeling better. Patient also states she will self-treat her symptoms at home with nasal Imitrex. Neurology referral given to patient by provider along with an Rx for Imitrex 5mg. Counseling was provided and all questions were answered regarding diagnosis. There is agreement to discharge plan. Return if symptoms persist or worsen. Clinical Impression: Migraine Scribe Attestation: Documented by Cornelia Manuel, acting as a scribe for Sandip Yeung MD. Provider Scribe Attestation: All medical record entries made by the Scribe were at my direction and personally dictated by me. I have reviewed the chart and agree that the record accurately reflects my personal performance of the history, physical exam, medical decision making, and the department course for this patient. I have also personally directed, reviewed, and agree with the discharge instructions and disposition. Disposition - Clinical Impression Clinical Impression: Migraine - Patient ED Disposition Is Patient to be Admitted: No Counseled Patient/Family Regarding: Diagnosis, Need For Followup - Disposition Referrals: Jesus Emery MD [Staff Provider] - Disposition: Routine/Home Disposition Time: 01:10 Condition: STABLE Prescriptions: Sumatriptan [Imitrex] 5 mg NS ONCE PRN #1 spray PRN Reason: Headache Instructions: Migraine Headaches in Adults Forms: [facility] ([place]rainian)
== END 2018-01-17 01:20 | disposition home or self-care (01) ==
LOC: H.ER 22:28
DX: G43.909 Migraine, unspecified, not intractable, without status migrainosus (principal); J45.909 Unspecified asthma, uncomplicated